=== PATIENT | male | born 1990 | race Caucasian/White ===

== ENCOUNTER 2024-11-24 14:07 | Emergency (ER) | payer BC, OTHER ==
[2024-11-24] MEDS ORDERED: Ondansetron PF 4 MG/2 ML Vial ONE (14:58)
[2024-11-24] MEDS ORDERED: Metoclopramide HCl 10 MG (2 mL) VIAL ONE (14:58)
[2024-11-24] MEDS ORDERED: diphenhydrAMINE 50 MG/ML VIAL ONE (14:58)
[2024-11-24 15:21] LABS: #Basophils Less than 0.03 10x3/uL (0.0-0.2); #Eosinophils 0.10 10x3/uL (0.0-0.5); #Monocytes 0.83 10x3/uL (0.0-1.1); #Neutrophils 12.11 10x3/uL (1.5-8.4); %Basophils 0.1 % (0.0-2.0); %Eosinophils 0.7 % (0.0-6.0); %Lymphocytes 4.9 % (18.0-47.0); %Monocytes 6.0 % (0.0-10.0); %Neutrophils 87.9 % (40.0-75.0); Hematocrit 48.1 % (38.8-50.0); Hemoglobin 15.8 g/dL (13.5-17.5); Mean Corpuscular Hemoglobin 28.8 pg (27.0-33.0); Mean Corpuscular Volume 87.8 fL (81.2-95.1); Platelet Count 236 10x3/uL (150-450); Red Blood Cell (RBC) Count 5.48 10x6/uL (4.32-5.72); White Blood Cell (WBC) Count 13.78 10x3/uL (3.5-10.5)
[2024-11-24 15:32] LABS: ALT (SGPT) 38 U/L (Less than 45); AST (SGOT) 31 U/L (11-34); Albumin 4.7 g/dL (3.1-4.5); Alkaline Phosphatase 45 U/L (40-110); Anion Gap 12 mmol/L (10-20); BUN (Urea Nitrogen) 11 mg/dL (8.9-20.6); Bilirubin, Total 0.7 mg/dL (0.3-1.2); Calc. Creatinine Clearance 0 mL/min (70-130); Calcium 9.6 mg/dL (7.8-10.44); Carbon Dioxide 24 mmol/L (22-29); Chloride 107 mmol/L (98-107); Globulin 3.2 g/dL (2.4-3.5); Glucose 103 mg/dL (70-105); Lipase 11 U/L (8-78); Potassium 4.3 mmol/L (3.5-5.1); Sodium 139 mmol/L (136-145)
== END 2024-11-24 18:10 | disposition home or self-care (01) ==
LOC: CSHERS 14:07
DX: K52.9 Noninfective gastroenteritis and colitis, unspecified (principal); F17.200 Nicotine dependence, unspecified, uncomplicated
CPT/HCPCS: 36415; 74177; 80053; 83690; 85025; 96374; 96375; J1200; J2405; J2765

== ENCOUNTER 2024-11-30 12:14 | Emergency (ER) | payer OTHER ==
[~2024-11-30 12:14] MED LIST: Iopamidol 300 61% 100 ML VIAL FS ONE
[2024-11-30] MEDS ORDERED: Ketorolac Tromethamine 30 MG (1 mL) VIAL ONE (13:30)
[2024-11-30 13:33] LABS: #Basophils Less than 0.03 10x3/uL (0.0-0.2); #Eosinophils 0.04 10x3/uL (0.0-0.5); #Monocytes 0.72 10x3/uL (0.0-1.1); #Neutrophils 11.92 10x3/uL (1.5-8.4); %Basophils 0.0 % (0.0-2.0); %Eosinophils 0.3 % (0.0-6.0); %Lymphocytes 4.8 % (18.0-47.0); %Monocytes 5.4 % (0.0-10.0); %Neutrophils 89.2 % (40.0-75.0); Hematocrit 45.6 % (38.8-50.0); Hemoglobin 15.3 g/dL (13.5-17.5); Mean Corpuscular Hemoglobin 29.3 pg (27.0-33.0); Mean Corpuscular Volume 87.2 fL (81.2-95.1); Platelet Count 213 10x3/uL (150-450); Red Blood Cell (RBC) Count 5.23 10x6/uL (4.32-5.72); White Blood Cell (WBC) Count 13.36 10x3/uL (3.5-10.5)
[2024-11-30 13:52] LABS: Troponin I Less than 0.010 ng/mL (< 0.028)
[2024-11-30 13:53] LABS: ALT (SGPT) 26 U/L (Less than 45); AST (SGOT) 23 U/L (11-34); Albumin 4.7 g/dL (3.1-4.5); Alkaline Phosphatase 45 U/L (40-110); Anion Gap 12 mmol/L (10-20); BUN (Urea Nitrogen) 11 mg/dL (8.9-20.6); Bilirubin, Total 0.6 mg/dL (0.3-1.2); Calc. Creatinine Clearance 0 mL/min (70-130); Calcium 9.8 mg/dL (7.8-10.44); Carbon Dioxide 24 mmol/L (22-29); Chloride 107 mmol/L (98-107); Globulin 2.9 g/dL (2.4-3.5); Glucose 109 mg/dL (70-105); Lipase 17 U/L (8-78); Magnesium 2.1 mg/dL (1.6-2.6); Potassium 5.0 mmol/L (3.5-5.1); Sodium 138 mmol/L (136-145)
== END 2024-11-30 17:06 | disposition home or self-care (01) ==
LOC: CSHERS 12:14
DX: R10.9 Unspecified abdominal pain (principal); F17.200 Nicotine dependence, unspecified, uncomplicated
CPT/HCPCS: 74177; 80053; 83690; 83735; 84484; 85025; 87426; 93005; J1885